=== PATIENT | female | born 1980 | race Asian ===

== ENCOUNTER 2018-02-26 14:11 | Emergency (ER) | payer BC ==
[2018-02-26] MEDS ORDERED: Metoclopramide HCl 10 MG/2 ML VIAL ONE (14:52)
[2018-02-26] MEDS ORDERED: diphenhydrAMINE 50 MG/ML VIAL ONE (14:52)
[2018-02-26] MEDS ORDERED: Magnesium Sulfate 2 GM/NS 0.9% 50 ML BAG ONE (16:05)
[2018-02-26] MEDS ORDERED: methylPREDNISolone Sod Succ/PF 125 MG/2 ML VIAL ONE (16:05)
--- NOTE | 2018-02-26 16:46 | CT ---
CT BRAIN: Date: HISTORY: Headache. FINDINGS: Noncontrast enhanced CT images of the brain demonstrate the brain to be unremarkable. No evidence of intracranial masses, hemorrhages, strokes, or contusions seen. The ventricles are of normal size. IMPRESSION: Normal CT brain. POS: [facility]
[2018-02-26] MEDS ORDERED: Ketorolac Tromethamine 30 MG/ML VIAL ONE (16:57)
== END 2018-02-26 17:47 | disposition home or self-care (01) ==
LOC: SCSER 14:11
DX: G43.909 Migraine, unspecified, not intractable, without status migrainosus (principal); E03.9 Hypothyroidism, unspecified; Z87.442 Personal history of urinary calculi; Z79.899 Other long term (current) drug therapy
CPT/HCPCS: 70450; 96361; 96365; 96367; 96375; J1200; J1885; J2765; J2930; J3475